=== PATIENT | female | born 1985 | race African-American/Black ===

== ENCOUNTER 2020-10-23 12:08 | Outpatient (REF) | payer OTHER, SELFPAY | END 2020-10-23 12:09 | disposition home or self-care (01) | LOC: HO.LAB 12:08 | PROVIDERS: Visit Provider Internal Medicine | DX: Z20.822 Contact with and (suspected) exposure to COVID-19 (principal) | CPT/HCPCS: C9803; U0003; U0005 ==

== ENCOUNTER 2020-10-29 14:13 | Emergency (ER) | payer OTHER, MEDICAID, SELFPAY ==
[2020-10-29 14:51] VITALS: BP 112/82; PULSE 89; RESP 16; TEMP 36.6; O2SAT 99; BMI 39.9
[2020-10-29 15:01] LABS: MANUAL DIFF FLAG NO
[2020-10-29 15:07] LABS: Basophils Percent Auto 0.6 % (0-2); Eosinophils Absolute Auto 0.2 X10*3/uL (0.0-0.4); Eosinophils Percent Auto 2.4 % (0-4); Hematocrit 38.4 % (37-47); Imm Gran Abs Auto 0.03 X10*3/uL (0.00-0.03); Imm Gran Pct Auto 0.4 % (0.0-0.4); Lymphocytes Percent Auto 42.8 % (20-40); Mean Corpuscular HGB Conc 31.3 g/dl (31.0-35.0); Mean Corpuscular Hemoglobin 25.4 pg (27.0-33.0); Mean Corpuscular Volume 81.4 fL (80-98); Mean Platelet Volume 9.9 fL (9.4-12.3); Monocytes Absolute Auto 0.5 X10*3/uL (0.1-1.2); Monocytes Percent Auto 7.4 % (2-11); Neutrophils Absolute Auto 3.3 X10*3/uL (2.0-8.3); Neutrophils Percent Auto 46.4 % (45-73); Platelet Count 223 X10*3/uL (160-400); Red Blood Count 4.72 X10*6/uL (4.20-5.50); Red Cell Distribution Width 14.4 % (11.0-16.0); White Blood Count 7.1 X10*3/uL (4.8-10.8)
[2020-10-29 15:23] LABS: Alanine Aminotransferase 15 U/L (0-31); Albumin Level 4.1 g/dL (3.5-5.0); Alkaline Phosphatase 62 U/L (39-117); Anion Gap 10 (12-20); Aspartate Amino Transferase 14 U/L (5-31); Bilirubin Total 0.3 mg/dL (0.0-1.0); Blood Urea Nitrogen 10 mg/dL (9-16); Calcium 9.5 mg/dL (8.4-10.2); Carbon Dioxide 24 mmol/L (22-29); Chloride 105 mmol/L (96-108); Creatinine Clr Calc Pharmacy 113.9; Estimated Glomerular Filt Rate > 60; Glucose Random 115 mg/dL (60-115); Potassium 4.2 mmol/L (3.3-5.1); Sodium 135 mmol/L (135-145)
--- NOTE | 2020-10-29 17:44 | ED_ITS ---
HPI - Dizziness General Chief Complaint: Dizziness Stated Complaint: HEADACHE Time Seen by Provider: 10/29/20 17:24 Source: patient Mode of arrival: ambulatory History of Present Illness HPI Narrative: 34yo F with no sig PMHx presenting to the ED c/o headache x weeks worse behind R eye/temporal region. Admits HIGHTOWER constant/unremitting, not relieved with Tylenol at home. Admits to intermittent lightheadedness, nausea, R eye blurry vision, parathesias, and CP, none at present. Admits to similar sx in the past, was evaluated at [facility] 1-2yrs ago, had labs/CT and was Dx with Tension HIGHTOWER/migraine. Denies fever, chills, visual loss, vomiting, diarrhea/constipation, abdominal pain, SOB, weakness, cough. Denies HIGHTOWER being maximal at onset. Denies taking anticoagulation MD elicited complaint: lightheadedness Related Data Previous Rx's Medication Instructions Recorded nfphrmohon-gtedqucilamhn-gfsjpsoe 1 cap PO Q4-6H PRN #14 cap 10/29/20 50 mg-300 mg-40 mg capsule (Fioricet) Allergies Allergy/AdvReac Type Severity Reaction Status Date / Time No Known Allergies Allergy Unverified 10/29/20 17:34 Review of Systems Review of Systems: Constitutional: No Fever, No Fatigue, No Malaise ENT/Mouth: No Ear Pain, No sore throat Eyes: No Eye Pain, No Discharge, +Intermittent R eye blurry vision Cardiovascular: +intermittent Chest Pain, No SOB Respiratory: No Cough, No Dyspnea Gastrointestinal: + Nausea, No Vomiting, No Abdominal pain Genitourinary: No Dysuria, No Urinary Frequency, No Hematuria, No Urgency, No Flank Pain Musculoskeletal: No joint pain, No Myalgias, No Joint Swelling Skin: No Skin Lesions, No rash Neuro: No Weakness, No Numbness, +intermittent Paresthesias, No Loss of Consciousness, + lightheadedness, + Headache Yes all other systems are reviewed and are negative Neurologic: Denies Abnormal speech present [facility] Past Medical History Attestation statement: The following information was validated with the patient. Social History Social History Advance Directives: No Advance Directives Information Provided: Yes Patient : No Physical Exam Vital Signs: Vital Signs: Last Vital Signs Temp 97.9 F 10/29/20 14:51 Pulse 103 H 10/29/20 18:27 Resp 16 10/29/20 18:09 BP 142/73 H 10/29/20 18:27 Pulse Ox 98 10/29/20 18:09 Body Mass Index 39.9 Const: General: cooperative, healthy appearing, no acute distress, well developed, alert and awake Orientation/consciousness: patient oriented x3 Limitations: no limitations HENMT: Head: Yes normal to inspection and Yes atraumatic Ears: hearing grossly normal bilaterally General nose exam: Normal external nose present Face and sinus: Yes normal facial exam Throat: Yes posterior oropharynx normal Eyes: General: appearance normal, both eyes and all related structures Pupils: Equal, round and reactive pupils present EOM: EOMs intact bilaterally Neck: Neck: Yes normal visual inspection and Yes no meningeal signs Resp: Effort & Inspection: normal respiratory effort Auscultation: clear to auscultation bilaterally, no rales, no rhonchi and no wheezes Cardio: Rate: regular rate Heart sounds: S1 normal heart sound present and S2 normal heart sound present GI: Inspection: Yes normal to inspection Palpation (GI): Soft to palpation, nontender, no guarding and not rigid Skin: Rashes: no rashes Wounds: no wounds Neuro: General: patient oriented x3, gait normal, tone normal, moves all extremities, no meningeal signs, no focal motor deficits and CN's II-XI intact bilaterally Cranial nerves: Yes CN's II-XII intact bilaterally and Yes Equal, round and reactive pupils present Cognition (Neuro): normal cognition Speech: No Abnormal speech present Gait exam (Neuro): Normal gait present Motor exam (neuro): 5/5 motor strength present throughout and Pronator motor function not present Coordination: gbsfll-vt-rmrn test normal Romberg Test: Negative Extrem: General: Yes normal to inspection Course Course Course Narrative: -1909--no leukocytosis. Troponin negative, labs otherwise unremarkable. negative. -orthostatic vital signs negative -1906--on re-evaluation patient is resting comfortably and reports symptomatic resolution. Discussed with patient needed follow-up with PCP/neurology. She verbalized understanding feel safe for discharge home at this time MDM - Dizziness MDM Narrative Medical decision making narrative: 34yo F with no sig PMHx presenting to the ED c/o headache x weeks worse behind R eye/temporal region. Admits HIGHTOWER constant/unremitting, not relieved with Tylenol at home. On exam VSS, NAD/nontoxic appearing, no focal neuro deficits. Symptoms unchanged from prior. Concern for tension headache/complicated migraine headache. Low concern for ACS. Assoc symptoms are intermittent, low concern so for CVT, CVA/TIA, meningitis/encephalitis Plan: Labs, UA, IVF, symptomatic treatment, reassess Medical Records Attestation: I reviewed the patient's medical records. Lab Data Attestation: I reviewed the patient's lab results. Result diagrams: 10/29/20 14:55 10/29/20 14:56 Labs: Lab Results 10/29/20 10/29/20 10/29/20 Range/Units 14:55 14:55 14:56 WBC 7.1 (4.8-10.8) X10*3/uL RBC 4.72 (4.20-5.50) X10*6/uL Hgb 12.0 (12.0-16.0) g/dl Hct 38.4 (37-47) % MCV 81.4 (80-98) fL MCH 25.4 L (27.0-33.0) pg MCHC 31.3 (31.0-35.0) g/dl RDW 14.4 (11.0-16.0) % Plt Count 223 (160-400) X10*3/uL MPV 9.9 (9.4-12.3) fL Immature Gran % (Auto) 0.4 (0.0-0.4) % Neut % (Auto) 46.4 (45-73) % Lymph % (Auto) 42.8 H (20-40) % Izard % (Auto) 7.4 (2-11) % Eos % (Auto) 2.4 (0-4) % Baso % (Auto) 0.6 (0-2) % Lymph # (Auto) 3.0 (1.2-4.9) X10*3/uL Izard # (Auto) 0.5 (0.1-1.2) X10*3/uL Eos # (Auto) 0.2 (0.0-0.4) X10*3/uL Baso # (Auto) 0.0 (0.0-0.2) X10*3/uL Abs Immat Gran (auto) 0.03 (0.00-0.03) X10*3/uL Absolute Neuts (auto) 3.3 (2.0-8.3) X10*3/uL Absolute Nucleated RBC 0.000 (0.0-0.012) X10*3/uL Nucleated RBC % (auto) 0.0 (0.0-0.2) /100WBC Sodium 135 (135-145) mmol/L Potassium 4.2 (3.3-5.1) mmol/L Chloride 105 (96-108) mmol/L Carbon Dioxide 24 (22-29) mmol/L Anion Gap 10 L (12-20) BUN 10 (9-16) mg/dL Creatinine 0.87 (0.5-1.4) mg/dL Estim Creat Clear Calc 113.9 Estimated GFR > 60 Random Glucose 115 (60-115) mg/dL Calcium 9.5 (8.4-10.2) mg/dL Magnesium 2.0 (1.6-2.6) mg/dL Total Bilirubin 0.3 (0.0-1.0) mg/dL AST 14 (5-31) U/L ALT 15 (0-31) U/L Alkaline Phosphatase 62 (39-117) U/L Troponin I High Sens < 3.5 (<3.5-17.0) ng/L Total Protein 7.0 (6.5-8.0) g/dL Albumin 4.1 (3.5-5.0) g/dL Urine Color Urine Appearance Urine pH (5.0-8.0) Ur Specific [place] (1.005-1.025) Urine Protein (NEG-TRACE) MG/DL Urine Glucose (UA) (NEG) MG/DL Urine Ketones (NEG) MG/DL Urine Blood (NEG) Urine Nitrite (NEG) Ur Leukocyte Esterase (NEG) Urine Test (NEGATIVE) 10/29/20 10/29/20 Range/Units 18:40 18:40 WBC (4.8-10.8) X10*3/uL RBC (4.20-5.50) X10*6/uL Hgb (12.0-16.0) g/dl Hct (37-47) % MCV (80-98) fL MCH (27.0-33.0) pg MCHC (31.0-35.0) g/dl RDW (11.0-16.0) % Plt Count (160-400) X10*3/uL MPV (9.4-12.3) fL Immature Gran % (Auto) (0.0-0.4) % Neut % (Auto) (45-73) % Lymph % (Auto) (20-40) % Izard % (Auto) (2-11) % Eos % (Auto) (0-4) % Baso % (Auto) (0-2) % Lymph # (Auto) (1.2-4.9) X10*3/uL Izard # (Auto) (0.1-1.2) X10*3/uL Eos # (Auto) (0.0-0.4) X10*3/uL Baso # (Auto) (0.0-0.2) X10*3/uL Abs Immat Gran (auto) (0.00-0.03) X10*3/uL Absolute Neuts (auto) (2.0-8.3) X10*3/uL Absolute Nucleated RBC (0.0-0.012) X10*3/uL Nucleated RBC % (auto) (0.0-0.2) /100WBC Sodium (135-145) mmol/L Potassium (3.3-5.1) mmol/L Chloride (96-108) mmol/L Carbon Dioxide (22-29) mmol/L Anion Gap (12-20) BUN (9-16) mg/dL Creatinine (0.5-1.4) mg/dL Estim Creat Clear Calc Estimated GFR Random Glucose (60-115) mg/dL Calcium (8.4-10.2) mg/dL Magnesium (1.6-2.6) mg/dL Total Bilirubin (0.0-1.0) mg/dL AST (5-31) U/L ALT (0-31) U/L Alkaline Phosphatase (39-117) U/L Troponin I High Sens (<3.5-17.0) ng/L Total Protein (6.5-8.0) g/dL Albumin (3.5-5.0) g/dL Urine Color YELLOW Urine Appearance CLEAR Urine pH 5.5 (5.0-8.0) Ur Specific [place] 1.020 (1.005-1.025) Urine Protein NEG (NEG-TRACE) MG/DL Urine Glucose (UA) NEG (NEG) MG/DL Urine Ketones NEG (NEG) MG/DL Urine Blood 1+ H (NEG) Urine Nitrite NEG (NEG) Ur Leukocyte Esterase NEG (NEG) Urine Test NEGATIVE (NEGATIVE) Discharge Plan Discharge Clinical Impression: Headache Qualifiers: Headache type: unspecified Headache chronicity pattern: unspecified pattern Intractability: not intractable Qualified Code(s): R51.9 - Headache, unspecified Patient Disposition: Home, Self-Care Instructions: Acute Headache (ED) Additional Instructions: Your blood work was reassuring today in the ED Fioricet is for headaches, take as needed In addition take Tylenol and Motrin at home, however be aware Fioricet has Tylenol mixed in, do not exceed 4 g in 1 day If her headache persists or worsens, becomes unbearable, you have vision loss, weakness, persistent nausea or vomiting please return to the ED Please follow-up with her doctor and Neurology Prescriptions: New kwyptguycu-bftbmeacteuqv-grcv [Fioricet] 50-300-40 mg capsule 1 cap PO Q4-6H PRN (Reason: headache) Qty: 14 RF: 0 Referrals: Daniel Maynard MD [Physician] - 1 week Ada Pacheco MD [Physician] - 1 week Physician,Unknown [Primary Care Provider] - 2 days
[2020-10-29] MEDS: Metoclopramide HCl 10 MG/2 ML VIAL IVPUSH (18:02)
[2020-10-29] MEDS: Ketorolac Tromethamine 15 MG/ML VIAL IVPUSH (18:02)
[2020-10-29] MEDS: diphenhydrAMINE HCL 50 MG/ML VIAL 12.5 MG IVPUSH (18:02)
[2020-10-29] MEDS: 0.9 % Sodium Chloride 1,000 ML 999 ML IVCONT (18:03)
[2020-10-29] MEDS: Magnesium Sulfate/H2O 2 GM/50 ML PIGGYBACK IV (18:03)
[2020-10-29 18:09] VITALS: BP 109/64; PULSE 82; RESP 16; O2SAT 98
[2020-10-29 18:12] LABS: Troponin-I High Sensitivity < 3.5 ng/L (<3.5-17.0)
[2020-10-29 18:25] VITALS: BP 118/63; BP 122/83; PULSE 84; PULSE 91
[2020-10-29 18:27] VITALS: BP 142/73; PULSE 103
[2020-10-29 19:00] LABS: Urine Pregnancy NEGATIVE (NEGATIVE)
[2020-10-29 19:01] LABS: UPreg QC Valid YES
[2020-10-29 19:02] LABS: Appearance Urine CLEAR; Color Urine YELLOW; Glucose Urine UA NEG (NEG); Leukocyte Esterase Urine NEG (NEG); Nitrite Urine NEG (NEG); PH 5.5 (5.0-8.0); UACC Culture Trigger NO; Urine Blood 1+ (NEG); Urine Ketones NEG (NEG); Urine Protein NEG (NEG-TRACE)
[2020-10-29 19:38] LABS: WBC Urine 0-2 /HPF (0-4)
[2020-10-29 19:39] LABS: Bacteria Urine TRACE /LPF; Squamous Epithelial Cell Urine TRACE /LPF
== END 2020-10-29 19:51 | disposition home or self-care (01) ==
PROVIDERS: Physician Assistant; Emergency Provider Emergency Medicine Emergency Medical Services
DX: R42 Dizziness and giddiness (principal); R51.9 Headache, unspecified; Z79.899 Other long term (current) drug therapy
CPT/HCPCS: 36415; 80053; 81001; 81003; 81025; 83735; 84484; 85025; 96365; 96366; 96375; 99284; 99285; J1200; J1885; J2765; J3475

== ENCOUNTER 2020-11-08 14:59 | Emergency (ER) | payer OTHER, MEDICAID, SELFPAY ==
[2020-11-08 16:25] VITALS: BP 146/89; PULSE 86; RESP 18; TEMP 36.8; O2SAT 100; BMI 39.5
--- NOTE | 2020-11-08 17:47 | ED.HA ---
HPI - Headache General Chief Complaint: Headache Stated Complaint: head pressure Time Seen by Provider: 11/08/20 17:47 Source: patient and family Mode of arrival: ambulatory Limitations: no limitations History of Present Illness HPI Narrative: 34-year-old female came in for evaluation of headache. Tension headache it started few days ago, patient was seen by range master was diagnosed with right eye papilledema, patient went to [facility] had a brain MRI and LP (record with her requested), patient was discharged to see her PCP next week, headache involving the whole entire head feels like pressure, it is constant, severe 10/10, pain is better with smoking marijuana, and fiorocet, nothing worsening the pain, no association of photophobia, neck stiffness, fever, chills, weakness, or numbness. Patient had a full ophthalmic evaluation last week and found to have right eye papilledema. Related Data Previous Rx's Medication Instructions Recorded hvhmrhrgmp-hquwowawxbqsz-upvbkkab 1 cap PO Q4-6H PRN #14 cap 10/29/20 50 mg-300 mg-40 mg capsule (Fioricet) ibuprofen 800 mg tablet 800 mg PO Q8H PRN #20 tab 11/08/20 Allergies Allergy/AdvReac Type Severity Reaction Status Date / Time No Known Allergies Allergy Unverified 10/29/20 17:34 Review of Systems Review of Systems: All other systems are reviewed and are negative Constitutional: Reports as per HPI and Reports no additional constitutional complaints Eyes: Reports as per HPI and Reports no additional eye complaints Reports system reviewed and no additional complaints, except as documented Cardiovascular: Reports as per HPI and Reports no additional cardiovascular complaints Respiratory: Reports as per HPI and Reports no additional respiratory complaints Gastrointestinal: Reports as per HPI and Reports no additional gastrointestinal complaints Genitourinary: Reports no additional female genitourinary complaints Musculoskeletal: Reports no additional musculoskeletal complaints Skin/Breast: Reports system reviewed and no additional complaints, except as docu Psychiatric: Reports no additional psychiatric complaints Endocrine: Reports no additional endocrine complaints Hematologic/Lymphatic: Reports no additional hematologic/lymphatic complaints Allergic/Immunologic: Reports no additional allergic/immunologic complaints Reports system reviewed and no additional complaints, except as documented and Reports Abnormal speech present PMFSH Social History Social History Advance Directives: No Advance Directives Information Provided: No Patient : No Physical Exam Vital Signs: Vital Signs: Last Vital Signs Temp 98.2 F 11/08/20 16:25 Pulse 86 11/08/20 16:25 Resp 18 11/08/20 16:25 BP 146/89 H 11/08/20 16:25 Pulse Ox 100 11/08/20 16:25 Body Mass Index 39.5 Vital signs have been reviewed as appeared to be correct. Blood pressure normal. Heart rate normal. Respiration rate normal. Temperature normal. Oxygen saturation normal. Appearance: Alert. Oriented X3. No acute distress. Head: Normal external exam. Normocephalic. Atraumatic. No Lemus signs noted. No raccoon eyes noted Eyes: PERRLA. EOMI. Conjunctiva and sclera normal. Eyelids normal. ENT: TM's Normal. Pharynx normal. Uvula midline. Moist mucous membranes. No trismus noted. No drooling noted. No muffled voice noted. Neck: Normal inspection. Neck supple. FROM. No adenopathy. Thyroid Normal. No meningeal signs. No neck mass noted. CVS: Normal heart rate and rhythm. Heart sound normal. No murmurs noted. Pulses normal throughout. Respiratory: No respiratory distress. Painless inspiration. Breath sounds normal. No wheezes/rales/rhonchi noted. Chest nontender. No accessory muscle usage noted or decreased air movement noted. Abdomen: Soft and nontender. Bowel sounds normal in all 4 quadrants. No distention noted. No organomegaly noted. No visible injury noted. Back: No CVA tenderness. Full range of motion noted. Skin: Skin warm and dry. Normal skin color. Normal skin turgor. No rashes/lesions/lacerations noted. Extremities: No lower extremity edema. Extremities exhibit normal range of motion. Extremities nontender. Neuro: Oriented X 3. Cranial nerve exam: II-XII are grossly intact No motor deficit. No sensory deficit. Reflexes normal. NIH Stroke Scale Level of Consciousness: Alert Level of Consciousness Questions: Answers both questions correctly Level of Consciousness Commands: Performs both tasks correctly Best Gaze: Normal Visual: No visual loss Facial Palsy: Normal Motor Arm (Right): No drift Motor Arm (Left): No drift Motor Leg (Right): No drift Motor Leg (Left): No drift Limb Ataxia: Absent Sensory: Normal Best Language: No aphasia Dysarthia: Normal Extinction and Inattention: No abnormality Score: 0 Course Course Course Narrative: Assessment and plan. 34-year-old female came in for evaluation of acute on chronic headache, patient had a recent hospitalization at [facility], patient had MRI/MRA of the brain which was unremarkable, LP was done at [facility] which is compatible with idiopathic intracranial hypertension patient was prescribed acetazolamide 500 mg b.i.d. patient left against medical advise. Patient now feels better, is scheduled to see her PCP on Wednesday. Patient could not afford Fioricet last time will prescribe ibuprofen 800 mg. Discharge Plan Discharge Clinical Impression: Tension headache Patient Disposition: Home, Self-Care Instructions: Acute Headache (ED) Prescriptions: New ibuprofen 800 mg tablet 800 mg PO Q8H PRN (Reason: pain) Qty: 20 RF: 0 No Action uykblnlexr-hdteejgywxmqx-jcri [Fioricet] 50-300-40 mg capsule 1 cap PO Q4-6H PRN (Reason: headache) Qty: 14 RF: 0 Referrals: Physician,None [Primary Care Provider] - 2 days
[2020-11-08] MEDS: oxyCODONE HCl Immed Release 5 MG TABLET PO (17:52)
[2020-11-08 19:13] VITALS: BP 150/93; PULSE 74; RESP 16; O2SAT 100
== END 2020-11-08 19:19 | disposition home or self-care (01) ==
PROVIDERS: Emergency Provider Emergency Medicine
DX: G44.209 Tension-type headache, unspecified, not intractable (principal); Z79.899 Other long term (current) drug therapy
CPT/HCPCS: 99284

== ENCOUNTER 2022-12-23 17:36 | Emergency (ER) | payer OTHER, MEDICAID, SELFPAY ==
--- NOTE | ~2022-12-23 | XR_ITS ---
EXAMINATION: XR CHEST CLINICAL INFORMATION: Chest pain COMPARISON: None available. TECHNIQUE: 2 views of the chest were obtained. FINDINGS: No acute finding. The lung aguilar are felt to be grossly clear. No infiltrate or failure is seen. There is no effusion. The cardiac silhouette is within normal limits. The hilar regions do not appear pathologically enlarged. XR/XR chest 2V IMPRESSION: No acute finding
--- NOTE | ~2022-12-23 | XR_ITS ---
EXAMINATION: XR CERVICAL SPINE CLINICAL INFORMATION: Pain. COMPARISON: None available. TECHNIQUE: 4 views of the cervical spine were obtained. FINDINGS: Evaluation of C5-C7 is very limited due to overlying shadowing from patient's shoulders. Otherwise, no discrete fracture or malalignment is visualized in the well seen portions of the cervical spine. The atlantoaxial and atlantooccipital articulations are maintained. No prevertebral soft tissue thickening. Included lung apices are clear. XR/XR cervical spine 3V IMPRESSION: Very limited evaluation of C5-C7 due to overlying shadowing from the patient's shoulders. Otherwise, no discrete fracture or malalignment.
--- NOTE | 2022-12-23 17:48 | ECG_ITS ---
Test Reason : CP Blood Pressure : / mmHG Vent. Rate : 075 BPM Atrial Rate : 075 BPM P-R Int : 154 ms QRS Dur : 078 ms QT Int : 374 ms P-R-T Axes : 032 009 000 degrees QTc Int : 417 ms Normal sinus rhythm with sinus arrhythmia Normal ECG No previous ECGs available Referred By: Generic ED Physician Electronically Signed By:MAR DÍAZ MD
[2022-12-23 18:45] VITALS: BP 138/72; PULSE 88; RESP 18; TEMP 37.1; O2SAT 100; BMI 54.8
--- NOTE | 2022-12-23 18:45 | ED_ITS ---
HPI - General Adult General Chief complaint: Upper Respiratory Symptoms Stated complaint: CP head pain, pain/ back pain. Time Seen by Provider: 12/23/22 19:31 Source: patient, RN notes reviewed and old records reviewed Mode of arrival: ambulatory Limitations: no limitations History of Present Illness HPI narrative: 37-year-old female presents for evaluation of headache. Patient's triage note reports the patient complained of chest pain, pain with inspiration, coughing, dizziness, fevers and chills When I evaluate the patient she states that she does have occasional chest pain but the rest of the symptoms are not true She denies having any coughing, dizziness, fevers or chills Patient reports a history of idiopathic intracranial hypertension. She follows with Dr. Pacheco, neurology and is currently taking acetazolamide She denies any visual loss Patient reports for the last 2 days she has had worsening posterior headache that starts in her neck and rise above the back of her head She states her pain is worse if she turns her head to the side She reports falling 2 months ago of a chair but no other recent falls or trauma Denies any fevers, chills cough, shortness of breath No other complaints or concerns at this time Related Data Previous Rx's Medication Instructions Recorded gexduehfnt-sbmexfsfvuvir-fdeeiovh 1 cap PO Q4-6H PRN headache #14 10/29/20 50 mg-300 mg-40 mg capsule caps (Fioricet) ibuprofen 800 mg tablet 800 mg PO Q8H PRN pain #20 tabs 11/08/20 cyclobenzaprine 7.5 mg tablet 7.5 mg PO TID PRN muscle spasm #15 12/23/22 tabs Allergies Allergy/AdvReac Type Severity Reaction Status Date / Time No Known Allergies Allergy Unverified 10/29/20 17:34 Review of Systems 2 Constitutional: Constitutional: Denies chills, Denies fever(s) and Reports headache(s) Eyes: Eyes: Denies blurry vision and Denies loss of vision ENT: Denies dizziness and Reports headache(s) Cardiovascular: Cardiovascular: Reports chest pain and Denies dyspnea Respiratory: Respiratory: Denies cough and Denies dyspnea Gastrointestinal: Gastrointestinal: Denies abdominal pain, Denies nausea and Denies vomiting Musculoskeletal: Musculoskeletal: Denies back pain Integumentary/Breasts: Skin/Breast: Denies rash Neurologic: Denies dizziness, Reports headache(s) and Denies loss of vision PMFSH Social History Social History Advance Directives: No Advance Directives Information Provided: Yes Physical Exam ED Vital Signs: Vital Signs - 24 hr 12/23/22 18:45 Temperature 98.8 F Pulse Rate 88 Respiratory Rate 18 Blood Pressure 138/72 Pulse Oximetry 100 Oxygen Delivery Method Room Air BMI result Body Mass Index 54.8 Const General: healthy appearing, comfortable, no acute distress, alert and awake Nutritional Appearance: well nourished Orientation/consciousness: patient oriented x3 HENMT Head: Yes normocephalic and Yes atraumatic Eyes Other: Funduscopic exam, there is no evidence of papilledema, av nicking Eyelids: Yes eyelids normal Conjunctivae: conjunctivae normal Sclerae: sclerae normal Corneas: corneas normal Pupils: Equal, round and reactive pupils present EOM: EOMs intact bilaterally Direct Ophthalmoscopy: no photophobia and no papilledema Neck Other: Bilateral cervical paraspinous muscle tenderness. Neck: Yes full ROM, No anterior neck swelling, No positive Brudzinski's sign and No positive Kernig's sign Resp Effort & Inspection: normal respiratory effort, able to speak in complete sentences and not labored Skin General skin exam: elasticity normal Neuro General: patient oriented x3 Cranial nerves: Yes CN's II-XII intact bilaterally, Yes Equal, round and reactive pupils present and Yes Bilaterally intact EOM present Cognition (Neuro): normal cognition Extrem Other: Moving all extremities well without any obvious deformities Course Course Course Narrative: This is an RME: Additional HPI, ROS, PE not included below will be deferred to primary provider. This is a [id number]-female, with a hx of idiopathic intracranial hypertension, presenting to the emergency department with a complaint of chest pain with inspiration, headache, and cough. Plan: Labs, chest xray, ekg, viral swabs. Reevaluation(s) Reevaluation #1: Patient reports improvement in her headache after Toradol and Fioricet. I reviewed the patient's prescription of Acetazolamide. She takes a low dose of 250 mg t.i.d.. I encouraged her to take family mg t.i.d. and while her neurologist tomorrow until let him know that we adjusted her medication. The patient was also encouraged to follow up with weight loss program which may also help her 82 a passing intracranial hypertension. Additionally, I feel the patient likely has a component of tension headache to her prior symptoms. Will discharge her with cyclobenzaprine as well. Time: 21:30 Medications Administered Discontinued Medications Generic Name Dose Route Start Last Admin Trade Name Ramiro PRN Reason Stop Dose Admin Acetaminophen/Butalbital/Caffeine 1 tab 12/23/22 20:08 12/23/22 20:18 Butalb/Acetamin/Caff 50/325/40 Tablet PO 12/23/22 20:09 1 tab ONCE ONE Administration Ketorolac Tromethamine 30 mg 12/23/22 20:08 12/23/22 20:18 Ketorolac Tromethamine 30 Mg/Ml Vial IM 12/23/22 20:09 30 mg ONCE ONE Administration Medical Decision Making Medical Decision Making [facility] Narrative: 37-year-old female presents for evaluation of neck pain and headache. She is tender to palpation of the bilateral paracervical spinous muscles. Her history and exam is most consistent with tension headache. She does carry a diagnosis of idiopathic intracranial hypertension. Denies any vision loss. Will assess visual acuity. There is no evidence of significant papilledema on funduscopic examination. Will attempt to treat her headache. She is requesting an x-ray of her neck given has fall from 2 months ago. I have a low suspicion for cervical fracture as she has no vertebral tenderness. Will treat the patient's headache with Toradol and Fioricet. Differential Diagnosis Differential Diagnoses: The differential diagnosis associated with the presentation includes Acute headache Tension headache Cluster headache Migraine headache Papilledema Idiopathic intracranial hypertension Lab Data [facility] Lab Attestation statement: I reviewed the patient's lab results. No leukocytosis or significant anemia. Normal platelet count. Patient's chloride is just above normal at 109 but otherwise no electrolyte abnormalities. Troponin negative, LFTs within normal limits, renal function within normal limits. 12/23/22 18:58 12/23/22 18:58 Labs: Lab Results 12/23/22 Range/Units 18:58 WBC 6.8 (4.8-10.8) X10*3/uL RBC 5.05 (4.20-5.50) X10*6/uL Hgb 12.2 (12.0-16.0) g/dl Hct 39.7 (37.0-47.0) % MCV 78.6 L (80.0-98.0) fL MCH 24.2 L (27.0-33.0) pg MCHC 30.7 L (31.0-35.0) g/dl RDW 15.5 (11.0-16.0) % Plt Count 215 (160-400) X10*3/uL MPV 9.8 (9.4-12.3) fL Immature Gran % (Auto) 0.1 (0.0-0.4) % Neut % (Auto) 53.3 (45-73) % Lymph % (Auto) 36.4 (20-40) % [place] % (Auto) 6.6 (2-11) % Eos % (Auto) 2.6 (0-4) % Baso % (Auto) 1.0 (0-2) % Lymph # (Auto) 2.5 (1.2-4.9) X10*3/uL [place] # (Auto) 0.5 (0.1-1.2) X10*3/uL Eos # (Auto) 0.2 (0.0-0.4) X10*3/uL Baso # (Auto) 0.1 (0.0-0.2) X10*3/uL Abs Immat Gran (auto) 0.01 (0.00-0.03) X10*3/uL Absolute Neuts (auto) 3.6 (2.0-8.3) x10*3/uL Absolute Nucleated RBC 0.000 (0.0-0.012) X10*3/uL Nucleated RBC % (auto) 0.0 (0.0-0.2) /100WBC Sodium 138 (135-145) mmol/L Potassium 3.7 (3.3-5.1) mmol/L Chloride 109 H (96-108) mmol/L Carbon Dioxide 24 (22-29) mmol/L Anion Gap 9 L (12-20) BUN 9 (9-16) mg/dL Creatinine 0.87 (0.5-1.4) mg/dL Estim Creat Clear Calc 133.9 Estimated GFR > 60 Random Glucose 118 H (60-115) mg/dL Calcium 9.1 (8.4-10.2) mg/dL Total Bilirubin 0.3 (0.0-1.0) mg/dL Direct Bilirubin 0.1 (0.0-0.5) mg/dL AST 14 (5-31) U/L ALT 12 (0-31) U/L Alkaline Phosphatase 63 (39-117) U/L Troponin I High Sens < 2.7 (<3.5-17.0) ng/L Total Protein 7.3 (6.5-8.0) g/dL Albumin 4.1 (3.5-5.0) g/dL Influenza Type A (PCR) NEGATIVE (Negative) Influenza Type B (PCR) NEGATIVE (Negative) RSV RNA Qual (PCR) NEGATIVE (Negative) SARS-CoV-2 RNA (RT-PCR) NEGATIVE (Negative) Independent Interpretation I performed an independent interpretation of an: Plain X-Ray (No infiltrates, pneumothorax or pleural effusions) Radiology Impression Discussion of test interpretation with radiology: I have reviewed the radiologist's reading. (No acute finding) Discharge Plan Discharge Clinical Impression: Acute tension headache Patient Disposition: Home, Self-Care Instructions: Acute Headache (ED) Additional Instructions: Your workup in the emergency department today was reassuring. Your symptoms are likely a combination of a tension headache as well as your idiopathic intracranial hypertension Gas, you may take 2 pills of your Actazolamide 3 times a day for a total of 500 mg t.i.d.. Call the weight loss program to make an appointment as this may help improve your headaches Also call your neurologist, Dr. Pacheco tomorrow morning to let him know that we adjusted your medication and schedule follow-up Return for new or worsening symptoms Prescriptions: New cyclobenzaprine 7.5 mg tablet 7.5 mg PO TID PRN (Reason: muscle spasm) Qty: 15 0RF No Action fmxmtlucit-tmpbnvuwxtzhy-fcsc [Fioricet] 50-300-40 mg capsule 1 cap PO Q4-6H PRN (Reason: headache) Qty: 14 0RF ibuprofen 800 mg tablet 800 mg PO Q8H PRN (Reason: pain) Qty: 20 0RF Referrals: Ada Pacheco MD [Physician] - (II follow up)
[2022-12-23 19:10] LABS: MANUAL DIFF FLAG NO
[2022-12-23 19:11] LABS: Basophils Absolute Auto 0.1 X10*3/uL (0.0-0.2); Eosinophils Absolute Auto 0.2 X10*3/uL (0.0-0.4); Eosinophils Percent Auto 2.6 % (0-4); Hematocrit 39.7 % (37.0-47.0); Hemoglobin 12.2 g/dl (12.0-16.0); Imm Gran Abs Auto 0.01 X10*3/uL (0.00-0.03); Imm Gran Pct Auto 0.1 % (0.0-0.4); Lymphocytes Absolute Auto 2.5 X10*3/uL (1.2-4.9); Lymphocytes Percent Auto 36.4 % (20-40); Mean Corpuscular HGB Conc 30.7 g/dl (31.0-35.0); Mean Corpuscular Hemoglobin 24.2 pg (27.0-33.0); Mean Corpuscular Volume 78.6 fL (80.0-98.0); Mean Platelet Volume 9.8 fL (9.4-12.3); Monocytes Absolute Auto 0.5 X10*3/uL (0.1-1.2); Monocytes Percent Auto 6.6 % (2-11); Neutrophils Absolute Auto 3.6 x10*3/uL (2.0-8.3); Neutrophils Percent Auto 53.3 % (45-73); Platelet Count 215 X10*3/uL (160-400); Red Blood Count 5.05 X10*6/uL (4.20-5.50); Red Cell Distribution Width 15.5 % (11.0-16.0); White Blood Count 6.8 X10*3/uL (4.8-10.8)
[2022-12-23 19:30] LABS: Alanine Aminotransferase 12 U/L (0-31); Albumin Level 4.1 g/dL (3.5-5.0); Alkaline Phosphatase 63 U/L (39-117); Anion Gap 9 (12-20); Aspartate Amino Transferase 14 U/L (5-31); Bilirubin Direct 0.1 mg/dL (0.0-0.5); Bilirubin Total 0.3 mg/dL (0.0-1.0); Blood Urea Nitrogen 9 mg/dL (9-16); Calcium 9.1 mg/dL (8.4-10.2); Carbon Dioxide 24 mmol/L (22-29); Chloride 109 mmol/L (96-108); Creatinine Clr Calc Pharmacy 133.9; Estimated Glomerular Filt Rate > 60; Glucose Random 118 mg/dL (60-115); Potassium 3.7 mmol/L (3.3-5.1); Sodium 138 mmol/L (135-145); Total Protein 7.3 g/dL (6.5-8.0)
[2022-12-23 19:37] LABS: Troponin-I High Sensitivity < 2.7 ng/L (<3.5-17.0)
[2022-12-23 19:52] LABS: Influenza A PCR NEGATIVE (Negative); Influenza B PCR NEGATIVE (Negative); Resp Syncy Virus RNA Qual PCR NEGATIVE (Negative); SARS COV2 PCR INHOUSE NEGATIVE (Negative)
[2022-12-23 20:00] VITALS: BP 168/88; PULSE 92; RESP 16; O2SAT 98
[2022-12-23] MEDS: Butalb/Acetamin/Caff 50/325/40 TABLET 1 TAB PO (20:18)
[2022-12-23] MEDS: Ketorolac Tromethamine 30 MG/ML VIAL IM (20:18)
--- NOTE | 2022-12-23 20:30 | PC.NURSE ---
pt medicated per APR for 10/25 head pain
== END 2022-12-23 21:48 | disposition home or self-care (01) ==
PROVIDERS: Physician Assistant Medical; Emergency Provider Emergency Medicine
DX: R51.9 Headache, unspecified (principal); R07.89 Other chest pain; M54.50 Low back pain, unspecified; I49.8 Other specified cardiac arrhythmias; R05.9 Cough, unspecified; M54.2 Cervicalgia; Z20.822 Contact with and (suspected) exposure to COVID-19; Z20.828 Contact with and (suspected) exposure to other viral communicable diseases; Z79.899 Other long term (current) drug therapy
CPT/HCPCS: 0241U; 71046; 72040; 80048; 80076; 84484; 85025; 93005; 96372; 99284; J1885